=== PATIENT | female | born 1950 | race Caucasian/White ===

== ENCOUNTER 2024-04-08 11:56 | Outpatient (RCR) | payer OTHER, SELFPAY | END 2024-04-08 23:59 | disposition home or self-care (01) | LOC: RPT 11:56 | PROVIDERS: ATTENDING PHYSICIAN Physician Assistant Surgical | DX: M17.12 Unilateral primary osteoarthritis, left knee (principal); M76.32 Iliotibial band syndrome, left leg; M62.89 Other specified disorders of muscle; M25.559 Pain in unspecified hip; M25.562 Pain in left knee; Z73.6 Limitation of activities due to disability | CPT/HCPCS: 97010; 97110; 97140; 97162 ==

== ENCOUNTER 2024-04-29 15:37 | Outpatient (RCR) | payer OTHER, SELFPAY | END 2024-04-29 23:59 | disposition home or self-care (01) | LOC: RPT 15:37 | PROVIDERS: ATTENDING PHYSICIAN Physician Assistant Surgical | DX: M17.12 Unilateral primary osteoarthritis, left knee (principal); M76.32 Iliotibial band syndrome, left leg; M62.89 Other specified disorders of muscle; M25.552 Pain in left hip; M25.562 Pain in left knee; Z73.6 Limitation of activities due to disability | CPT/HCPCS: 97010; 97110; 97140 ==